=== PATIENT | female | born 1980 | race Caucasian/White ===

== ENCOUNTER 2018-02-22 10:17 | Inpatient (IN) | payer BC ==
[~2018-02-22] VITALS: Ht 157.5 cm; Wt 108.9 kg
[2018-02-22 10:19] VITALS: BP 142/73
[2018-02-22 10:53] LABS: URINE BILIRUBIN NEGATIVE (Negative); URINE BLOOD NEGATIVE (Negative); URINE CLARITY CLEAR; URINE COLOR YELLOW; URINE GLUCOSE-RANDOM* NEGATIVE (Negative); URINE KETONES NEGATIVE (Negative); URINE LEUKOCYTES-REFLEX NEGATIVE (Negative); URINE NITRITE-REFLEX NEGATIVE (Negative); URINE PROTEIN (DIPSTICK) NEGATIVE (Negative); URINE SPECIFIC GRAVITY >= 1.030 (1.005-1.035); URINE UROBILINOGEN 0.2 E.U./dl (0.2-1.0)
[2018-02-22 11:14] LABS: ABSOLUTE NEUTROPHILS 5.2 thou/uL (1.4-8.2); BASOPHILS 0.4 % (0.0-2.0); HEMATOCRIT 41.8 % (37.0-47.0); HEMOGLOBIN 14.5 gm/dL (12.0-15.0); LYMPHOCYTES 30.3 % (24.0-44.0); MCH 30.9 pg (26.0-34.0); MCHC 34.7 g/dL (28.0-37.0); MONOCYTES 5.9 % (1.0-8.0); PLATELET COUNT 222 thou/uL (150-400); POLYS 61.4 % (36.0-66.0); RBC 4.69 mil/uL (4.20-5.00); RDW 13.8 % (10.5-14.5); WBC 8.4 thou/uL (4.0-11.0)
[2018-02-22 11:22] LABS: CALCIUM 9.9 mg/dL (8.5-10.1); CREATININE 0.8 mg/dL (0.6-1.0); POTASSIUM 3.6 mmol/L (3.5-5.1)
[2018-02-22 11:28] LABS: ALBUMIN 4.3 g/dL (3.4-5.0); TOTAL BILIRUBIN 0.6 mg/dL (<0.1-1.0); TOTAL PROTEIN 8.7 g/dL (6.4-8.2)
[2018-02-22] MEDS ORDERED: ONDANSETRON HCL4 M2 PO (13:53)
[2018-02-22 15:01] VITALS: BP 157/110
[2018-02-22 16:00] VITALS: BP 141/83
[2018-02-22 19:42] VITALS: BP 114/71
[2018-02-23 04:03] VITALS: BP 122/76
[2018-02-23 05:44] LABS: HEMATOCRIT 33.6 % (37.0-47.0); MCH 31.5 pg (26.0-34.0); MCHC 34.9 g/dL (28.0-37.0); MCV 90.3 fL (80.0-100.0); RBC 3.72 mil/uL (4.20-5.00); RDW 13.2 % (10.5-14.5); WBC 7.3 thou/uL (4.0-11.0)
[2018-02-23 05:50] LABS: HEMOGLOBIN 11.7 gm/dL (12.0-15.0)
[2018-02-23 05:55] LABS: CALCIUM 8.4 mg/dL (8.5-10.1); CREATININE 0.7 mg/dL (0.6-1.0); MAGNESIUM 1.7 mg/dL (1.8-2.4); POTASSIUM 3.8 mmol/L (3.5-5.1)
[2018-02-23 08:30] VITALS: BP 118/76
[2018-02-23 11:26] VITALS: BP 118/76
== END 2018-02-23 12:42 | disposition home or self-care (01) | DRG 392 ==
LOC: ER 10:17 → 4E 15:14 → EROBS 15:14 → 4E 15:43
PROVIDERS: Internal Medicine; Physician Assistant
DX: A08.4 Viral intestinal infection, unspecified (principal); J45.909 Unspecified asthma, uncomplicated; M79.7 Fibromyalgia; Z87.891 Personal history of nicotine dependence; Z91.013 Allergy to seafood; Z88.8 Allergy status to other drugs, medicaments and biological substances; Z91.018 Allergy to other foods
CPT/HCPCS: 10084